=== PATIENT | female | born 1970 | race Caucasian/White ===

== ENCOUNTER 2018-09-04 15:31 | Emergency (ER) | payer MEDICAID ==
[~2018-09-04] VITALS: Ht 177.8 cm; Wt 127.3 kg
[~2018-09-04 15:31] MED LIST: ALBU8.5H8 IH; EPIN0.3P17 IM; GUAI600T45 PO; IBUP-1984 PO; PARO20TA53 PO; PRED10TA PO
[2018-09-04 15:34] VITALS: BP 136/67
[2018-09-04] MEDS ORDERED: ibuprofen tablet 400 MG TABLET PO ONE (16:50)
[2018-09-04] MEDS ORDERED: IBUP-1984 PO (16:51)
== END 2018-09-04 17:26 | disposition home or self-care (01) ==
LOC: ER 15:31
DX: M54.5 Low back pain (principal); G43.909 Migraine, unspecified, not intractable, without status migrainosus; E11.9 Type 2 diabetes mellitus without complications; G89.29 Other chronic pain; F12.90 Cannabis use, unspecified, uncomplicated; Z90.49 Acquired absence of other specified parts of digestive tract; Z90.710 Acquired absence of both cervix and uterus; Z98.51 Tubal ligation status; Z98.890 Other specified postprocedural states; Z91.040 Latex allergy status; Z88.2 Allergy status to sulfonamides; Z88.1 Allergy status to other antibiotic agents; Z88.8 Allergy status to other drugs, medicaments and biological substances; Z79.899 Other long term (current) drug therapy; Z59.0 Homelessness; Z56.0 Unemployment, unspecified; W00.0XXA Fall on same level due to ice and snow, initial encounter; Y93.89 Activity, other specified; Y92.89 Other specified places as the place of occurrence of the external cause; Y99.8 Other external cause status
CPT/HCPCS: 99282

== ENCOUNTER 2019-03-31 12:45 | Emergency (ER) | payer MEDICAID ==
[~2019-03-31] VITALS: Ht 157.5 cm; Wt 129.4 kg
[2019-03-31 13:11] VITALS: BP 136/62
== END 2019-03-31 14:30 | disposition home or self-care (01) ==
LOC: ER 12:46
DX: S50.12XA Contusion of left forearm, initial encounter (principal); M25.532 Pain in left wrist; M25.562 Pain in left knee; E66.9 Obesity, unspecified; G43.909 Migraine, unspecified, not intractable, without status migrainosus; E11.9 Type 2 diabetes mellitus without complications; G89.29 Other chronic pain; F12.90 Cannabis use, unspecified, uncomplicated; Z59.0 Homelessness; Z56.0 Unemployment, unspecified; Z90.49 Acquired absence of other specified parts of digestive tract; Z98.890 Other specified postprocedural states; Z90.710 Acquired absence of both cervix and uterus; Z98.51 Tubal ligation status; Z91.040 Latex allergy status; Z88.2 Allergy status to sulfonamides; Z88.1 Allergy status to other antibiotic agents; Z88.6 Allergy status to analgesic agent; Z79.899 Other long term (current) drug therapy; W18.30XA Fall on same level, unspecified, initial encounter; Y93.89 Activity, other specified; Y92.89 Other specified places as the place of occurrence of the external cause; Y99.9 Unspecified external cause status
CPT/HCPCS: 29125; 73110; 73564; 99284

== ENCOUNTER 2019-04-09 15:10 | Emergency (ER) | payer MEDICAID ==
[~2019-04-09] VITALS: Ht 157.5 cm; Wt 113.6 kg
[2019-04-09 16:39] VITALS: BP 130/85
[2019-04-09] MEDS ORDERED: proCHLORperazine 10 MG/2 ml inj IM ONE (18:40)
[2019-04-09] MEDS ORDERED: diphenhydrAMINE 50 mg/ml inj IM ONE (18:40)
[2019-04-09] MEDS ORDERED: ketorolac tromethamine 15mg/ml inj. IM ONE (18:40)
[2019-04-09] MEDS ORDERED: ondansetron 4mg rapidly disintigrating tab PO ONE (21:00)
[2019-04-09] MEDS ORDERED: ONDA4TAB6 PO (21:00)
== END 2019-04-09 22:28 | disposition home or self-care (01) ==
LOC: ER 15:10
DX: G43.909 Migraine, unspecified, not intractable, without status migrainosus (principal); E11.9 Type 2 diabetes mellitus without complications; F32.9 Major depressive disorder, single episode, unspecified; F12.90 Cannabis use, unspecified, uncomplicated; Z90.49 Acquired absence of other specified parts of digestive tract; Z90.710 Acquired absence of both cervix and uterus; Z98.51 Tubal ligation status; Z98.890 Other specified postprocedural states; Z56.0 Unemployment, unspecified; Z59.0 Homelessness; Z91.040 Latex allergy status; Z88.2 Allergy status to sulfonamides; Z88.1 Allergy status to other antibiotic agents; Z79.899 Other long term (current) drug therapy; Z88.8 Allergy status to other drugs, medicaments and biological substances
CPT/HCPCS: 96372; 99284; J0780; J1200; J1885

== ENCOUNTER 2019-05-23 16:26 | Emergency (ER) | payer MEDICAID ==
[~2019-05-23] VITALS: Ht 157.5 cm; Wt 126.0 kg
[~2019-05-23 16:26] MED LIST changes: +ONDA4TAB6 PO
[2019-05-23] MEDS ORDERED: proCHLORperazine 10 MG/2 ml inj IV ONE (18:05)
[2019-05-23] MEDS ORDERED: diphenhydrAMINE 50 mg/ml inj IV ONE (18:05)
[2019-05-23] MEDS ORDERED: normal saline 1000ml 1,000 ML IV ONE (18:15)
[2019-05-23] MEDS ORDERED: ketorolac tromethamine 15mg/ml inj. IV ONE (18:50)
[2019-05-23 19:31] VITALS: BP 127/77
== END 2019-05-23 19:33 | disposition home or self-care (01) ==
LOC: ER 16:27
DX: G43.909 Migraine, unspecified, not intractable, without status migrainosus (principal); R11.2 Nausea with vomiting, unspecified; E11.9 Type 2 diabetes mellitus without complications; G89.29 Other chronic pain; F32.9 Major depressive disorder, single episode, unspecified; F12.90 Cannabis use, unspecified, uncomplicated; Z88.2 Allergy status to sulfonamides; Z88.1 Allergy status to other antibiotic agents; Z88.8 Allergy status to other drugs, medicaments and biological substances; Z79.899 Other long term (current) drug therapy; Z91.018 Allergy to other foods; Z98.890 Other specified postprocedural states; Z87.440 Personal history of urinary (tract) infections; Z90.49 Acquired absence of other specified parts of digestive tract; Z90.710 Acquired absence of both cervix and uterus; Z91.040 Latex allergy status; Z98.51 Tubal ligation status; Z59.0 Homelessness; Z56.0 Unemployment, unspecified
CPT/HCPCS: 96361; 96374; 96375; 99283; J0780; J1200; J1885; J7030

== ENCOUNTER 2019-07-03 13:56 | Emergency (ER) | payer MEDICAID ==
[~2019-07-03] VITALS: Ht 157.5 cm; Wt 135.0 kg
[2019-07-03 15:55] VITALS: BP 124/67
[2019-07-03] MEDS ORDERED: diphenhydrAMINE 50 mg/ml inj IM ONE (16:00)
[2019-07-03] MEDS ORDERED: ketorolac tromethamine 15mg/ml inj. IV ONE (16:00)
[2019-07-03] MEDS ORDERED: ondansetron 4mg rapidly disintigrating tab PO ONE (16:00)
[2019-07-03] MEDS ORDERED: proCHLORperazine 10 MG/2 ml inj IM ONE (16:00)
[2019-07-03] MEDS ORDERED: IBUP-1984 PO (17:25)
[2019-07-03] MEDS ORDERED: ONDA4TAB6 PO (17:25)
== END 2019-07-03 17:38 | disposition home or self-care (01) ==
LOC: ER 13:58
DX: G43.909 Migraine, unspecified, not intractable, without status migrainosus (principal); E11.9 Type 2 diabetes mellitus without complications; G89.29 Other chronic pain; F32.9 Major depressive disorder, single episode, unspecified; F10.99 Alcohol use, unspecified with unspecified alcohol-induced disorder; F12.90 Cannabis use, unspecified, uncomplicated; Z90.49 Acquired absence of other specified parts of digestive tract; Z90.710 Acquired absence of both cervix and uterus; Z98.890 Other specified postprocedural states; Z98.51 Tubal ligation status; Z59.0 Homelessness; Z56.0 Unemployment, unspecified; Z91.040 Latex allergy status; Z88.2 Allergy status to sulfonamides; Z88.1 Allergy status to other antibiotic agents; Z88.8 Allergy status to other drugs, medicaments and biological substances; Z91.09 Other allergy status, other than to drugs and biological substances; Z79.899 Other long term (current) drug therapy; Y90.9 Presence of alcohol in blood, level not specified
CPT/HCPCS: 96372; 96374; 99283; J0780; J1200; J1885

== ENCOUNTER 2019-07-28 18:05 | Emergency (ER) | payer MEDICAID ==
[~2019-07-28] VITALS: Ht 157.5 cm; Wt 131.6 kg
[2019-07-28] MEDS ORDERED: ondansetron/PF 4mg/2ml inj IV ONE (20:35)
[2019-07-28] MEDS ORDERED: normal saline 1000ML IV soln IVB ONE (20:50)
[2019-07-28] MEDS ORDERED: ketorolac trometh. 30mg/ml inj. IV ONE (20:50)
[2019-07-28] MEDS ORDERED: dexamethasone sod phosphate 10mg/ml inj IV STA (20:55)
--- NOTE | 2019-07-28 21:41 | NUR ---
Pt reports minimal improvement in her symptoms.
[2019-07-28 22:41] VITALS: BP 142/87
== END 2019-07-28 22:49 | disposition home or self-care (01) ==
LOC: ER 18:05
DX: G43.909 Migraine, unspecified, not intractable, without status migrainosus (principal); R11.10 Vomiting, unspecified; E11.9 Type 2 diabetes mellitus without complications; G89.29 Other chronic pain; F12.90 Cannabis use, unspecified, uncomplicated; Z59.0 Homelessness; Z56.0 Unemployment, unspecified; Z90.49 Acquired absence of other specified parts of digestive tract; Z98.890 Other specified postprocedural states; Z90.710 Acquired absence of both cervix and uterus; Z98.51 Tubal ligation status; Z87.442 Personal history of urinary calculi; Z91.040 Latex allergy status; Z88.2 Allergy status to sulfonamides; Z88.1 Allergy status to other antibiotic agents; Z88.6 Allergy status to analgesic agent
CPT/HCPCS: 96361; 96374; 96375; 99283; J1100; J1885; J2405; J7030

== ENCOUNTER 2019-08-21 12:52 | Emergency (ER) | payer MEDICAID ==
[~2019-08-21] VITALS: Ht 157.5 cm; Wt 128.7 kg
[2019-08-21] MEDS ORDERED: normal saline 1000ML IV soln IVB ONE (15:00)
[2019-08-21] MEDS ORDERED: ketorolac tromethamine 15mg/ml inj. IV ONE (15:00)
[2019-08-21] MEDS ORDERED: proCHLORperazine 10 MG/2 ml inj IV ONE (15:00)
[2019-08-21] MEDS ORDERED: PROC5TAB56 PO (15:26)
[2019-08-21 16:25] VITALS: BP 129/92
[2019-08-22] MEDS ORDERED: PRED20TA PO (18:19)
[2019-08-22] MEDS ORDERED: EPIN0.3P3 IJ (18:19)
== END 2019-08-21 16:23 | disposition home or self-care (01) ==
LOC: ER 12:52
DX: G43.909 Migraine, unspecified, not intractable, without status migrainosus (principal); R11.2 Nausea with vomiting, unspecified; E11.9 Type 2 diabetes mellitus without complications; G89.29 Other chronic pain; F12.90 Cannabis use, unspecified, uncomplicated; Z59.0 Homelessness; Z56.0 Unemployment, unspecified; Z87.442 Personal history of urinary calculi; Z90.49 Acquired absence of other specified parts of digestive tract; Z98.890 Other specified postprocedural states; Z90.710 Acquired absence of both cervix and uterus; Z98.51 Tubal ligation status; Z91.040 Latex allergy status; Z88.2 Allergy status to sulfonamides; Z88.1 Allergy status to other antibiotic agents; Z88.8 Allergy status to other drugs, medicaments and biological substances; Z79.899 Other long term (current) drug therapy
CPT/HCPCS: 96361; 96374; 96375; 99283; J0780; J1885; J7030

== ENCOUNTER 2019-08-22 18:08 | Emergency (ER) | payer MEDICAID ==
[~2019-08-22] VITALS: Ht 157.5 cm; Wt 128.7 kg
[~2019-08-22 18:08] MED LIST changes: +PROC5TAB56 PO
[2019-08-22] MEDS ORDERED: dexamethasone sod phosphate 10mg/ml inj IV STA (18:10)
[2019-08-22] MEDS ORDERED: famotidine/PF 10 mg/ml inj IV ONE (18:10)
[2019-08-22] MEDS ORDERED: EPIN0.3P3 IJ (18:19)
[2019-08-22] MEDS ORDERED: PRED20TA PO (18:19)
[2019-08-22 18:49] VITALS: BP 140/86
== END 2019-08-22 18:45 | disposition home or self-care (01) ==
LOC: ER 18:08
DX: L27.2 Dermatitis due to ingested food (principal); R06.02 Shortness of breath; R06.00 Dyspnea, unspecified; F12.90 Cannabis use, unspecified, uncomplicated; E11.9 Type 2 diabetes mellitus without complications; F32.9 Major depressive disorder, single episode, unspecified; G89.29 Other chronic pain; G43.909 Migraine, unspecified, not intractable, without status migrainosus; Z59.0 Homelessness; Z90.49 Acquired absence of other specified parts of digestive tract; Z90.710 Acquired absence of both cervix and uterus; Z98.51 Tubal ligation status; Z98.890 Other specified postprocedural states; Z56.0 Unemployment, unspecified; Z72.89 Other problems related to lifestyle; Z88.2 Allergy status to sulfonamides; Z87.898 Personal history of other specified conditions; Z88.1 Allergy status to other antibiotic agents; Z91.040 Latex allergy status; Z88.8 Allergy status to other drugs, medicaments and biological substances
CPT/HCPCS: 96374; 96375; 99283; J1100; J3490

== ENCOUNTER 2020-02-24 19:17 | Emergency (ER) | payer MEDICAID ==
[~2020-02-24] VITALS: Ht 157.5 cm; Wt 120.0 kg
[~2020-02-24 19:17] MED LIST changes: +EPIN0.3P3 IJ
[2020-02-24 19:24] VITALS: BP 136/92
[2020-02-24] MEDS ORDERED: normal saline 1000ML IV soln IVB ONE (21:05)
[2020-02-24] MEDS ORDERED: proCHLORperazine 10 MG/2 ml inj IV ONE (21:05)
[2020-02-24] MEDS ORDERED: LORazepam 2 mg/ml vial IV ONE (21:05)
[2020-02-24] MEDS ORDERED: ketorolac trometh. 30mg/ml inj. IV ONE (21:05)
== END 2020-02-24 22:39 | disposition home or self-care (01) ==
LOC: ER 19:18
DX: G43.909 Migraine, unspecified, not intractable, without status migrainosus (principal); E11.22 Type 2 diabetes mellitus with diabetic chronic kidney disease; N18.9 Chronic kidney disease, unspecified; F32.9 Major depressive disorder, single episode, unspecified; F12.90 Cannabis use, unspecified, uncomplicated; Z98.51 Tubal ligation status; Z90.49 Acquired absence of other specified parts of digestive tract; Z90.710 Acquired absence of both cervix and uterus; Z98.890 Other specified postprocedural states; Z72.89 Other problems related to lifestyle; Z59.0 Homelessness; Z56.0 Unemployment, unspecified
CPT/HCPCS: 96374; 96375; 99284; J0780; J1885; J2060; J7030

== ENCOUNTER 2020-06-10 15:08 | Emergency (ER) | payer MEDICAID ==
[~2020-06-10] VITALS: Ht 157.5 cm; Wt 122.0 kg
[2020-06-10] MEDS ORDERED: dexamethasone inj 6 MG in normal saline 100ml IV soln 100 ML IV STA (15:20)
[2020-06-10] MEDS ORDERED: normal saline 1000ML IV soln IVB ONE (15:20)
[2020-06-10] MEDS ORDERED: proCHLORperazine 10 MG/2 ml inj IV ONE (15:20)
[2020-06-10] MEDS ORDERED: ketorolac tromethamine 15mg/ml inj. IV ONE (16:05)
[2020-06-10 18:16] VITALS: BP 130/86
== END 2020-06-10 18:19 | disposition home or self-care (01) ==
LOC: ER 15:09
DX: G43.909 Migraine, unspecified, not intractable, without status migrainosus (principal); E11.9 Type 2 diabetes mellitus without complications; G89.29 Other chronic pain; Z56.0 Unemployment, unspecified; Z87.442 Personal history of urinary calculi; Z59.0 Homelessness; Z91.040 Latex allergy status; Z88.2 Allergy status to sulfonamides; Z88.5 Allergy status to narcotic agent; Z88.8 Allergy status to other drugs, medicaments and biological substances; Z79.899 Other long term (current) drug therapy
CPT/HCPCS: 96365; 96375; 99284; J0780; J1100; J1885; J7030; 96374

== ENCOUNTER 2022-05-04 18:07 | Emergency (ER) | payer MEDICAID ==
[~2022-05-04] VITALS: Ht 157.5 cm; Wt 129.6 kg
[~2022-05-04 18:07] MED LIST changes: +ALBU8.5H17 IH; -ALBU8.5H8 IH
[2022-05-04 20:41] VITALS: BP 141/84
== END 2022-05-04 20:52 | disposition home or self-care (01) ==
LOC: ER 18:07
DX: S90.32XA Contusion of left foot, initial encounter (principal); M79.672 Pain in left foot; G43.909 Migraine, unspecified, not intractable, without status migrainosus; E11.9 Type 2 diabetes mellitus without complications; G89.29 Other chronic pain; F32.A Depression, unspecified; F12.90 Cannabis use, unspecified, uncomplicated; Z87.442 Personal history of urinary calculi; Z90.49 Acquired absence of other specified parts of digestive tract; Z90.710 Acquired absence of both cervix and uterus; Z98.51 Tubal ligation status; Z98.890 Other specified postprocedural states; Z72.89 Other problems related to lifestyle; Z56.0 Unemployment, unspecified; Z59.00 Homelessness unspecified; Z91.040 Latex allergy status; Z88.2 Allergy status to sulfonamides; Z88.1 Allergy status to other antibiotic agents; Z88.8 Allergy status to other drugs, medicaments and biological substances; Z79.899 Other long term (current) drug therapy; X58.XXXA Exposure to other specified factors, initial encounter; Y93.89 Activity, other specified; Y92.89 Other specified places as the place of occurrence of the external cause; Y99.8 Other external cause status
CPT/HCPCS: 73630; 99283

== ENCOUNTER 2022-07-04 17:15 | Emergency (ER) | payer MEDICAID ==
[~2022-07-04] VITALS: Ht 157.5 cm; Wt 95.5 kg
[2022-07-04 17:29] VITALS: BP 138/72
[2022-07-04] MEDS ORDERED: HYDROcodone/acetaminophen 5mg/325mg tablet PO ONE (20:55)
[2022-07-04] MEDS ORDERED: IBUP-1984 PO (21:15)
[2022-07-04] MEDS ORDERED: CYCL-1 PO (21:15)
== END 2022-07-04 21:41 | disposition home or self-care (01) ==
LOC: ER 17:16
DX: M25.511 Pain in right shoulder (principal); G43.909 Migraine, unspecified, not intractable, without status migrainosus; E11.9 Type 2 diabetes mellitus without complications; G89.29 Other chronic pain; M54.9 Dorsalgia, unspecified; F32.A Depression, unspecified; Z87.442 Personal history of urinary calculi; Z90.49 Acquired absence of other specified parts of digestive tract; Z59.00 Homelessness unspecified; Z56.0 Unemployment, unspecified; Z91.040 Latex allergy status; Z88.2 Allergy status to sulfonamides; Z88.8 Allergy status to other drugs, medicaments and biological substances; Z79.899 Other long term (current) drug therapy
CPT/HCPCS: 73030; 99283; A4565

== ENCOUNTER 2022-12-23 22:46 | Emergency (ER) | payer MEDICAID ==
[~2022-12-23] VITALS: Ht 157.5 cm; Wt 109.0 kg
[~2022-12-23 22:46] MED LIST changes: +CYCL-1 PO
[2022-12-23 22:50] VITALS: BP 130/92
[2022-12-23] MEDS ORDERED: PRED20TA PO (23:17)
[2022-12-23] MEDS ORDERED: dexamethasone sod phosphate 10mg/ml inj IM STA (23:18)
== END 2022-12-24 00:05 | disposition home or self-care (01) ==
LOC: ER 22:47
DX: L23.7 Allergic contact dermatitis due to plants, except food (principal); G43.909 Migraine, unspecified, not intractable, without status migrainosus; E11.9 Type 2 diabetes mellitus without complications; F12.90 Cannabis use, unspecified, uncomplicated; Z88.2 Allergy status to sulfonamides; Z91.09 Other allergy status, other than to drugs and biological substances; Z91.040 Latex allergy status; Z90.49 Acquired absence of other specified parts of digestive tract; Z98.890 Other specified postprocedural states; Z98.51 Tubal ligation status; Z59.00 Homelessness unspecified; Z56.0 Unemployment, unspecified
CPT/HCPCS: 96372; 99283; J1100